=== PATIENT | male | born 1975 | race African-American/Black ===

== ENCOUNTER 2017-01-13 23:00 | Emergency (ER) | payer OTHER ==
[~2017-01-13] VITALS: Ht 177.8 cm; Wt 79.9 kg
[~2017-01-13 23:00] MED LIST: ABILIFY2 MG PO; DIAZEPAM10 MG PO; DIAZEPAM5 MG PO; GLIPIZIDE5 M1 G-TUBE; METFORMIN HCL1000 MG PO; MOBIC7.5 MG PO; WELLBUTRIN100 M1 PO
[2017-01-13 23:41] LABS: HEMATOCRIT 41.4 % (38.0-50.0); MCHC 33.1 G/DL (30.0-36.0); MCV 90.8 FL (86-99); PLATELET COUNT 145 K/uL (156-360); RBC DIS.WIDTH-CV 12.4 % (11.8-14.6); RBC DIS.WIDTH-SD 41.1 % (39-53); RED BLOOD COUNT 4.56 M/uL (4.00-5.50); WHITE BLOOD COUNT 3.5 K/uL (4.1-10.2)
[2017-01-13 23:49] LABS: CHLORIDE 101 mEq/L (99-109); POTASSIUM 3.7 mEq/L (3.7-5.4); SODIUM 136 mEq/L (136-147)
[2017-01-13 23:51] LABS: GLUCOSE 274 mg/dL (70-99)
[2017-01-13 23:52] LABS: ANION GAP 12 MEQ/L (2-14)
[2017-01-13 23:54] LABS: SERUM ETHYL ALCOHOL 18 mg/dL
[2017-01-13 23:55] LABS: GFR ESTIMATE (CALCULATED) > 59 mL/min/
[2017-01-13 23:57] LABS: UREA NITROGEN (BUN) 10 mg/dL (9-23)
[2017-01-13 23:58] LABS: SALICYLATE < 5.0 MG/DL (15-30)
[2017-01-14] MEDS ORDERED: NARCAN4 MG NS (03:41)
[2017-01-14 03:52] VITALS: BP 128/80
== END 2017-01-14 04:03 | disposition home or self-care (01) ==
LOC: EME → EDBD 23:00 → EME 01-14 04:03
PROVIDERS: Emergency Medicine
DX: T40.2X1A Poisoning by other opioids, accidental (unintentional), initial encounter (principal); F10.129 Alcohol abuse with intoxication, unspecified; Y90.0 Blood alcohol level of less than 20 mg/100 ml; F32.9 Major depressive disorder, single episode, unspecified; E11.65 Type 2 diabetes mellitus with hyperglycemia; F17.200 Nicotine dependence, unspecified, uncomplicated
CPT/HCPCS: 80048; 81003; 85027; 99281; 99284; G0480; J2310

== ENCOUNTER 2017-02-03 21:15 | Emergency (ER) | payer OTHER ==
[~2017-02-03 21:15] MED LIST changes: +NARCAN4 MG NS
== END 2017-02-03 21:22 | disposition left against medical advice (07) ==
LOC: EME 21:15
DX: Z53.21 Procedure and treatment not carried out due to patient leaving prior to being seen by health care provider (principal)

== ENCOUNTER 2017-03-23 14:05 | Emergency (ER) | payer OTHER | END 2017-03-23 14:08 | disposition left against medical advice (07) | LOC: EME 14:05 | DX: T50.991A Poisoning by other drugs, medicaments and biological substances, accidental (unintentional), initial encounter (principal); Z53.21 Procedure and treatment not carried out due to patient leaving prior to being seen by health care provider ==

== ENCOUNTER 2017-05-11 14:47 | Emergency (ER) | payer OTHER ==
[~2017-05-11] VITALS: Ht 177.8 cm; Wt 79.0 kg
[2017-05-11] MEDS ORDERED: BACTRIM,SEPT1 TABLET PO (17:26)
[2017-05-11 18:00] VITALS: BP 122/75
== END 2017-05-11 18:00 | disposition home or self-care (01) ==
LOC: EME 14:47
DX: L02.415 Cutaneous abscess of right lower limb (principal); S80.861A Insect bite (nonvenomous), right lower leg, initial encounter; W57.XXXA Bitten or stung by nonvenomous insect and other nonvenomous arthropods, initial encounter; Z59.0 Homelessness
CPT/HCPCS: 99281; 99284

== ENCOUNTER 2017-06-03 09:29 | Emergency (ER) | payer OTHER ==
[~2017-06-03] VITALS: Ht 177.8 cm; Wt 75.6 kg
[~2017-06-03 09:29] MED LIST changes: +BACTRIM,SEPT1 TABLET PO
[2017-06-03 11:08] LABS: EOSINOPHIL (%) 0.5 % (0-5); HEMATOCRIT 38.7 % (38.0-50.0); IMMATURE GRANULOCYTE (%) 0.5 % (0.0-0.7); MCH 29.5 PG (29.0-34.0); MCHC 32.6 G/DL (30.0-36.0); MCV 90.6 FL (86-99); MEAN PLAT.VOLUME 9.3 uM^3 (9.0-12.4); MONOCYTE (%) 7.3 % (3-12); MONOCYTE COUNT 0.5 K/uL (0-0.8); NEUTROPHIL (%) 75.8 % (45-76); PLATELET COUNT 161 K/uL (156-360); RBC DIS.WIDTH-CV 11.9 % (11.8-14.6); RBC DIS.WIDTH-SD 39.4 % (39-53); RED BLOOD COUNT 4.27 M/uL (4.00-5.50); WHITE BLOOD COUNT 6.6 K/uL (4.1-10.2)
[2017-06-03 11:13] LABS: CHLORIDE 99 mEq/L (99-109); POTASSIUM 3.9 mEq/L (3.7-5.4); SODIUM 136 mEq/L (136-147)
[2017-06-03 11:14] LABS: GLUCOSE 318 mg/dL (70-99)
[2017-06-03 11:16] LABS: ANION GAP 9 MEQ/L (2-14)
[2017-06-03 11:18] LABS: GFR ESTIMATE (CALCULATED) > 59 mL/min/
[2017-06-03 11:19] LABS: UREA NITROGEN (BUN) 11 mg/dL (9-23)
[2017-06-03] MEDS ORDERED: AUGMENTIN875 MG PO (14:03)
[2017-06-03] MEDS ORDERED: METFORMIN HCL500 M4 PO (14:03)
[2017-06-03 14:30] VITALS: BP 132/82
== END 2017-06-03 14:35 | disposition home or self-care (01) ==
LOC: EME 09:29
DX: L03.311 Cellulitis of abdominal wall (principal); L02.211 Cutaneous abscess of abdominal wall; E11.65 Type 2 diabetes mellitus with hyperglycemia; F32.9 Major depressive disorder, single episode, unspecified; F17.200 Nicotine dependence, unspecified, uncomplicated
CPT/HCPCS: 76705; 80048; 81003; 83605; 85025; 99281; 99285; J0696; J7050

== ENCOUNTER 2017-12-27 22:21 | Emergency (ER) | payer OTHER ==
[~2017-12-27] VITALS: Ht 177.8 cm; Wt 78.7 kg
[~2017-12-27 22:21] MED LIST changes: +AUGMENTIN875 MG PO; +METFORMIN HCL500 M4 PO
[2017-12-28] MEDS ORDERED: MOTRIN600 MG PO (00:03)
[2017-12-28] MEDS ORDERED: FLEXERIL10 MG PO (00:03)
[2017-12-28 00:30] VITALS: BP 132/84
== END 2017-12-28 00:32 | disposition home or self-care (01) ==
LOC: EME 22:21
DX: S16.1XXA Strain of muscle, fascia and tendon at neck level, initial encounter (principal); S39.012A Strain of muscle, fascia and tendon of lower back, initial encounter; V43.62XA Car passenger injured in collision with other type car in traffic accident, initial encounter; Y92.410 Unspecified street and highway as the place of occurrence of the external cause; E11.9 Type 2 diabetes mellitus without complications; F32.9 Major depressive disorder, single episode, unspecified; F17.200 Nicotine dependence, unspecified, uncomplicated; Z88.6 Allergy status to analgesic agent
CPT/HCPCS: 99281; 99284